=== PATIENT | male | born 1970 | race Caucasian/White ===

== ENCOUNTER 2017-07-23 17:55 | Emergency (ER) | payer OTHER ==
[~2017-07-23] VITALS: Ht 188 cm; Wt 145.0 kg
[2017-07-23] MEDS ORDERED: ALLO300T2 PO (18:05)
[2017-07-23] MEDS ORDERED: AMLO10TA80 PO (18:05)
[2017-07-23] MEDS ORDERED: NAPR-681 PO (18:05)
[2017-07-23] MEDS ORDERED: ATEN100T PO (18:05)
[2017-07-23] MEDS ORDERED: ASPI-1159 PO (18:05)
[2017-07-23] MEDS ORDERED: MORPHINE SULFATE 4 MG/ML CPJ (NOT FOR IM USE) IV STA (19:12)
[2017-07-23] MEDS ORDERED: SODIUM CHLORIDE 0.9% 1,000 ML IV ONE (19:12)
[2017-07-23] MEDS ORDERED: ONDANSETRON HCL 4MG/2ML VIAL IV STA (19:12)
[2017-07-23 19:44] LABS: BASOPHILS % 0.7 % (0.0-2.0); EOSINOPHILS % 2.2 % (0.0-5.0); HEMATOCRIT. 39.3 % (42.0-52.0); HEMOGLOBIN. 13.2 g/dL (14.0-18.0); LYMPHOCYTES % 8.8 % (20.0-50.0); MEAN CORPUSCULAR HEMOGLOBIN 29.7 pg (28.0-32.0); MEAN CORPUSCULAR VOLUME 88.5 fL (80.0-94.0); MEAN PLATELET VOLUME 8.8 fl (7.4-10.4); MONOCYTES % 5.1 % (2.0-8.0); NEUTROPHILS % 83.2 % (40.0-76.0); PLATELET 134 x1000/uL (130-400); RED BLOOD CELL COUNT 4.44 mill/uL (4.7-6.1); RED CELL DISTRIBUTION WIDTH 14.3 % (11.6-14.6)
[2017-07-23 19:47] LABS: CHLORIDE 103 mEq/L (98-107)
[2017-07-23 19:56] LABS: CARBON DIOXIDE 28 mEq/L (21-32)
[2017-07-23 21:13] LABS: CLARITY URINE CLEAR (CLEAR); COLOR URINE YELLOW (YELLOW); GLUCOSE URINE NEGATIVE (NEGATIVE); KETONES URINE NEGATIVE (NEGATIVE); LEUKOCYTE ESTERASE URINE TRACE (NEGATIVE); NITRITE URINE NEGATIVE (NEGATIVE); OCCULT BLOOD URINE 3+ (NEGATIVE); PH URINE 6.5 (4.5-8.0); PROTEIN URINE 1+ (NEGATIVE); SPECIFIC GRAVITY URINE 1.019 (1.005-1.030)
[2017-07-24 01:11] VITALS: BP 126/80
== END 2017-07-24 01:15 | disposition home or self-care (01) ==
LOC: ER 20:06
DX: N20.0 Calculus of kidney (principal); R10.32 Left lower quadrant pain; I10 Essential (primary) hypertension; M10.9 Gout, unspecified; Z98.890 Other specified postprocedural states; Z79.82 Long term (current) use of aspirin
CPT/HCPCS: 36415; 76700; 80053; 81001; 85025; 96361; 96374; 96375; 99285; J2270; J2405; J7030